=== PATIENT | female | born 2000 | race Caucasian/White ===

== ENCOUNTER 2024-04-07 09:54 | Emergency (ER) | payer BC, SELFPAY ==
--- NOTE | 2024-04-07 10:05 | EKG_ITS ---
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
[2024-04-07 10:07] VITALS: BP 125/92; PULSE 90; RESP 16; TEMP 36.8; O2SAT 99; BMI 28.1
--- NOTE | 2024-04-07 11:00 | PD.EDRME ---
Rapid Medical Screening Exam RME Arrival date/time: 04/07/24 09:54 24-year-old female with history of anxiety presents the emergency department today complaints of palpitations Chief Complaint: Arrhythmia/Palpitations Time Seen by Provider: 04/07/24 10:12 Vital signs: Vital Signs Temperature 98.3 F 04/07/24 10:07 Pulse Rate 90 04/07/24 10:07 Respiratory Rate 16 04/07/24 10:07 Blood Pressure 125/92 H 04/07/24 10:07 Pulse Oximetry (%) 99 04/07/24 10:07 Oxygen Delivery Method Room Air 04/07/24 10:07
== END 2024-04-07 11:07 | disposition left against medical advice (07) ==
LOC: SERX 10:42
PROVIDERS: Emergency Provider Emergency Medicine
DX: I49.8 Other specified cardiac arrhythmias (principal); Z53.29 Procedure and treatment not carried out because of patient's decision for other reasons
CPT/HCPCS: 80053; 83735; 84484; 84703; 85025; 93005; 99281